=== PATIENT | male | born 1995 | race Caucasian/White ===

== ENCOUNTER 2016-04-24 04:02 | Emergency (ER) | payer OTHER ==
[~2016-04-24] VITALS: Ht 182.9 cm; Wt 72.7 kg
[2016-04-24 04:05] VITALS: BP 153/97; PULSE 72; RESP 16; O2SAT 99
--- NOTE | 2016-04-24 04:49 | ED.REPORT ---
HPI-Abd Pain M Under 40 Date of Service Apr 24, 2016 ED Provider: Brandt Sanchez MD This is a 20 year old male presenting with lower abdominal pain that began 4 days ago. Reports radiation to the groin and is described as a burning sensation. Reports decreased appetite. Denies fever, chills, dysuria, radiation to testicles, bowel or bladder changes, or vomiting. Nursing Notes Stated Complaint: ABDOMINAL PAIN Chief Complaint: Male Abdominal Pain Nursing Notes Reviewed: Yes Allergies: Coded Allergies: No Known Allergies (Unverified , 04/24/16) General Time Seen by MD: 04:35 Chief Complaint Abdominal pain Hx Obtained From: Patient Arrived By: Walk-in Sudden in Onset?: Yes Onset Occurred: 4 days ago Symptom Duration: Since onset Severity: Current: Moderate Pertinent Negative: Pt denies other symptoms Recent Healthcare: No recent doctor visit, No recent hospitalization Similar Sx Previous: No Past Medical History Past Medical History Denies Past Surgical History Denies Ambulatory Status Independent Review of Systems Constitutional: Denies: Chills, Fever Respiratory: Denies: Non-productive cough, Shortness of breath GI: Reports: Abdominal pain, Nausea, Denies: Constipation, Diarrhea, Vomiting Male: Denies Dysuria Complete sys rev & neg: except as marked. Physical Exam Initial Vital Signs Vital Signs (First) Date Time Temp Pulse Resp B/P Pulse Ox O2 Delivery O2 Flow Rate FiO2 04/24/16 04:05 36.3 72 16 153/97 99 Room Air Initial VS: Reviewed, Vital signs abnormal Head / Eyes: Atraumatic, Normocephalic, PERRL ENT: Mucous membranes moist, Conjunctiva normal, No scleral icterus Neck: Supple, Non-tender, Full range of motion Extremities: Vascular intact, Neuro intact, No swelling, No tenderness Skin: Warm, Dry, No cyanosis Neurologic: Alert, Oriented, Nonfocal Psychiatric: Mood/affect normal, Behavior normal, Normal thought content General/Constitutional: Awake, Alert Respiratory / Chest: Breath sounds NL, Breath sounds = bilat, No respiratory distress, No rales, No rhonchi, No wheezing, No stridor Cardiovascular: Heart rate NL, Regular rhythm, Heart sounds NL, Peripheral circulation NL Tenderness/Guarding/Rebound: Positive: McBurney's point tender Back: Inspection NL, Non-tender, No CVA tenderness Interpretation & Diagnostics Lab Results Interpretation Result Diagram: 04/24/16 0515 04/24/16 0515 Test 04/24/16 05:15 White Blood Count 6.6th/mm3 (3.8-10.1) Red Blood Count 5.50mil/mm3 (4.40-5.80) Hemoglobin 16.4g/dL (13.8-17.2) Hematocrit 47.3% (41.0-50.0) Mean Corpuscular Volume 86.0fL (81-100) Mean Corpuscular Hemoglobin 29.8pg (27.0-35.0) Mean Corpuscular Hemoglobin Concent 34.7% (32.0-37.0) Red Cell Distribution Width 13.2% (12.3-15.4) Platelet Count 192bil/L (150-400) Neutrophils (%) (Auto) 52.2% (40-74) Lymphocytes (%) (Auto) 36.0% (14-46) Monocytes (%) (Auto) 10.1% (4-12) Eosinophils (%) (Auto) 1.2% (0-5) Basophils (%) (Auto) 0.3% (0-3) Hold Urine Received (Received) Sodium Level 138mEq/L (134-144) Potassium Level 4.0mEq/L (3.5-5.2) Chloride Level 99mEq/L (97-108) Carbon Dioxide Level 26mmol/L (18-29) Blood Urea Nitrogen 9mg/dL (6-20) Creatinine 0.81mg/dL (0.76-1.27) Estimat Glomerular Filtration Rate 130mL/min (>59) Glucose Level 101mg/dL (60-99) Calcium Level 9.3mg/dL (8.5-10.1) Magnesium Level 2.1mg/dL (1.6-2.6) Total Bilirubin 0.9mg/dL (0.0-1.2) Aspartate Amino Transf (AST/SGOT) 20U/L (0-50) Alanine Aminotransferase (ALT/SGPT) 17U/L (0-44) Alkaline Phosphatase 74U/L (25-150) Total Protein 7.6g/dL (6.4-8.4) Albumin 4.7g/dL (3.4-5.0) Lipase 21U/L (13-60) Re-Eval/Medical Decision Med Decision/Clinical Course 20-year-old male comes in with a history of abdominal pain localizing in the right lower quadrant. He is tender at McBurney's point. Initial laboratory was ordered. His care is turned over change shift to Dr. Nolasco who will evaluate with ultrasound and proceed as needed. Counseled Regarding: Diagnosis, Lab results, Need for follow-up Patient Discharge & Departure Discharge Condition All VS Reviewed: Yes Condition: Stable Referrals: NOPCP (PCP) Care Transferred to: Dr. Goddard Care Transferred at: 06:03 Scribe Attestation Portions of this note were transcribed by Luis Massey. I, Dr. Sanchez personally performed the history, physical exam and medical decision-making; I reviewed and confirmed the accuracy of the information in the transcribed note. Signed by: kenneth Alanis. 04/23/2016, 06:00. Brandt Sanchez MD Apr 24, 2016 04:49 LUIS MASSEY Apr 24, 2016 04:54
[2016-04-24] MEDS ORDERED: 0.9% Sodium Chloride 1,000 ML IV ONE (05:01)
[2016-04-24] MEDS ORDERED: Ondansetron 2 mg/mL 2 mL Inj IVPUSH PRN (05:05)
[2016-04-24 05:26] LABS: Mean Corpuscular Hemoglobin 29.8 pg (27.0-35.0)
[2016-04-24 05:27] LABS: BASOPHILS % (AUTO) 0.3 % (0-3); EOSINOPHILS % (AUTO) 1.2 % (0-5); MONOCYTES % (AUTO) 10.1 % (4-12); NEUTROPHILS % (AUTO) 52.2 % (40-74); Platelet Count 192 bil/L (150-400)
[2016-04-24 05:53] LABS: Magnesium 2.1 mg/dL (1.6-2.6)
[2016-04-24 07:14] VITALS: BP 147/96; PULSE 57; O2SAT 100
[2016-04-24] MEDS ORDERED: Famotidine Inj 20 MG in IV Premix 1 EACH IV ONE (08:35)
[2016-04-24] MEDS ORDERED: FAMO40TA72 PO (08:40)
--- NOTE | 2016-04-24 08:42 | DRSVH ---
PROCEDURE: US APPENDIX INDICATIONS: 20-year-old man with right lower abdominal pain. TECHNIQUE: Real-time focused scanning was performed of the abdomen with attention to the appendix, with image do cumentation. COMPARISON: None. FINDINGS: Appendix appears normal in caliber and wall thickness. The appendix is compressible. No a ppendicoliths identified. No fluid collection or free fluid in the right lower quadrant. Slightly pr ominent right lower quadrant lymph nodes are noted measuring up to 5 mm. The patient is nontender in the right lower quadrant during the examination. IMPRESSION: 1. Normal appendix. 2. A few nonspecific, normal-sized right lower quadrant lymph nodes. Dictated by: Kalani Hoyt M.D. on 04/24/2016 at 8:34 Approved by: Kalani Hoyt M.D. on 04/24/2016 at 8:41
[2016-04-24 09:50] VITALS: BP 141/95; PULSE 62; O2SAT 100
== END 2016-04-24 08:40 | disposition home or self-care (01) ==
LOC: SED 04:02
DX: R10.31 Right lower quadrant pain (principal); R63.0 Anorexia
CPT/HCPCS: 36415; 76705; 80053; 83690; 83735; 85025; 96361; 96374; 99285; J2405; J3490; J7030